=== PATIENT | female | born 2005 | race African-American/Black ===

== ENCOUNTER 2025-05-06 19:39 | Emergency (ER) | payer OTHER ==
[~2025-05-06] VITALS: Ht 154.9 cm; Wt 61.4 kg
[2025-05-06 19:49] VITALS: BP 141/63; PULSE 55; RESP 16; TEMP 98.1; O2SAT 99
== END 2025-05-06 22:41 | disposition left against medical advice (07) ==
LOC: EMS 19:39
DX: M54.2 Cervicalgia (principal); M54.50 Low back pain, unspecified; Z53.21 Procedure and treatment not carried out due to patient leaving prior to being seen by health care provider